=== PATIENT | female | born 1995 | race Caucasian/White ===

== ENCOUNTER 2017-11-21 18:38 | Emergency (ER) | payer OTHER ==
[~2017-11-21] VITALS: Ht 160 cm; Wt 48.4 kg
[~2017-11-21 18:38] MED LIST: CIPRO500 MG PO
[2017-11-21 19:31] LABS: APPEARANCE SL.HAZY ((CLEAR)); BILIRUBIN NEGATIVE; BLOOD SMALL; COLOR YELLOW ((YELLOW)); GLUCOSE (STRIP) NEGATIVE; KETONES 80; LEUKOCYTES LARGE; NITRITE NEGATIVE; PROTEIN (STRIP) 30; SPECIFIC GRAVITY 1.015 (1.000-1.030); UROBILINOGEN 0.2 MG/DL (0.2-1.0)
[2017-11-21 19:47] LABS: RED BLOOD CELLS RARE /HPF (0-5)
[2017-11-21 19:48] LABS: BACTERIA 2+ /HPF; EPITHELIAL CELLS 2+ /HPF; MUCUS TRACE /LPF; UCUL ADDED? YES; WHITE BLOOD CELLS 40-50 /HPF (0-5)
[2017-11-21 19:56] LABS: HEMATOCRIT 31.6 % (36.0-46.0); MCH 32.9 PG (29.0-34.0); MCHC 34.8 G/DL (30.0-36.0); MCV 94.6 FL (83-99); PLATELET COUNT 219 K/uL (156-360); RBC DIS.WIDTH-CV 12.6 % (11.8-14.6); RBC DIS.WIDTH-SD 43.6 % (39-53); RED BLOOD COUNT 3.34 M/uL (3.80-5.20); WHITE BLOOD COUNT 10.2 K/uL (4.1-10.2)
[2017-11-21 20:20] LABS: QUANTITATIVE HCG < 4.0 MIU/ML
[2017-11-21 20:28] LABS: CHLORIDE 103 mEq/L (99-109); POTASSIUM 3.6 mEq/L (3.7-5.4); SODIUM 133 mEq/L (136-147)
[2017-11-21 20:30] LABS: GLUCOSE 81 mg/dL (70-99)
[2017-11-21 20:33] LABS: CREATININE 0.7 mg/dL (0.6-1.3); GFR ESTIMATE (CALCULATED) > 59 mL/min/
[2017-11-21 20:34] LABS: UREA NITROGEN (BUN) 9 mg/dL (9-23)
[2017-11-21] MEDS ORDERED: KEFLEX500 MG PO (21:32)
[2017-11-21] MEDS ORDERED: ZOFRAN4 MG PO (21:40)
[2017-11-21 22:01] VITALS: BP 103/55
== END 2017-11-21 22:03 | disposition home or self-care (01) ==
LOC: EME 18:38
PROVIDERS: Nurse Practitioner Family
DX: R10.9 Unspecified abdominal pain (principal); R30.0 Dysuria; R50.9 Fever, unspecified; J45.909 Unspecified asthma, uncomplicated; Z87.440 Personal history of urinary (tract) infections; Z88.2 Allergy status to sulfonamides
CPT/HCPCS: 74176; 80048; 81003; 83605; 84702; 85027; 87040; 87077; 87086; 87186; 87801; 99281; 99284; J0696; J2405; J7030